=== PATIENT | male | born 1965 | race Caucasian/White ===

== ENCOUNTER → 2016-05-31 | Outpatient (CLI) | payer BC ==
[~2016-05-31] MED LIST: HYDR1TAB2 PO; IBUP-103 PO; rapaflo PO
--- NOTE | 2016-05-31 13:32 | DIAGNOSTIC IMAGING REPORT ---
RIGHT ANKLE MIN 3 VIEWS ROUTINE CLINICAL HISTORY: Right ankle pain COMPARISON: None. DISCUSSION: No fractures or dislocations are visualized. The ankle mortise appears intact. There are no erosive or destructive changes. IMPRESSION: No fractures, dislocations, or destructive lesions are visualized. Electronically signed by: Gregory Mary M.D. 05/31/2016 1:31 PM Dictated Date/Time: 05/31/2016 1:30 PM
--- NOTE | 2016-05-31 13:33 | DIAGNOSTIC IMAGING REPORT ---
RIGHT FOOT MIN 3 VIEWS ROUTINE CLINICAL HISTORY: Right foot pain COMPARISON: None. DISCUSSION: No fractures or dislocations are visualized. There are no erosive or destructive changes. IMPRESSION: No fractures, dislocations, or destructive lesions are visualized. Electronically signed by: Gregory Mary M.D. 05/31/2016 1:32 PM Dictated Date/Time: 05/31/2016 1:31 PM
== END | disposition home or self-care (01) ==
LOC: C.RAD1850 13:10
PROVIDERS: ATTEND Internal Medicine
DX: M25.571 Pain in right ankle and joints of right foot (principal); M79.671 Pain in right foot